=== PATIENT | female | born 1950 | race Hispanic/Latino ===

== ENCOUNTER 2018-08-18 14:51 | Emergency (ER) | payer OTHER ==
[~2018-08-18] VITALS: Ht 157.5 cm; Wt 93.0 kg
[2018-08-18] MEDS ORDERED: IBUPROFEN 600 MG TAB PO STA (15:13)
--- NOTE | 2018-08-18 15:13 | NUR ---
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
[2018-08-18] MEDS ORDERED: ACETAMINOPHEN 325 MG TAB PO ONE (15:15)
--- NOTE | 2018-08-18 15:51 | NUR ---
MANUFACTURING QUALITY ENGINEER FOR R/O DVT
--- NOTE | 2018-08-18 16:06 | NUR ---
WEED SCIENCE RESEARCH TECHNICIAN TO ROOM
--- NOTE | 2018-08-18 16:10 | Diagnostic Imaging Report ---
Exam: AP pelvis and left hip 2 views History: Pain, fall Comparison: None. Findings: No fracture or malalignment. Joint spaces preserved. No abnormal soft tissue calcification or soft tissue defect. Impression: No acute osseous abnormality Signed by: Dr. Tima Sadler M.D. on 08/18/2018 4:07 PM
--- NOTE | 2018-08-18 16:10 | Diagnostic Imaging Report ---
Exam: Left knee 3 views History: Pain Comparison: None. Findings: No fracture or malalignment. Mild medial compartment knee degenerative arthrosis. Small joint effusion. Impression: No acute osseous abnormality Small effusion Signed by: Dr. Tima Sadler M.D. on 08/18/2018 4:06 PM
--- NOTE | 2018-08-18 16:54 | Diagnostic Imaging Report ---
EXAM: US LOW EXT VEINS LIMITED UNI DATE: 08/18/2018 12:00 AM INDICATION: Fall, calf pain COMPARISON: None FINDINGS: Left lower extremity veins from the common femoral to the popliteal level were evaluated with grayscale, color flow and spectral waveform analysis. At each level, including the common femoral, greater saphenous, superficial femoral and popliteal vein, flow is identified. Normal augmentation is seen. The veins are normally compressible at each level. IMPRESSION: No evidence for venous thrombus in the left lower extremity from the common femoral through the popliteal level. Signed by: Dr. Nick Kapadia M.D. on 08/18/2018 4:50 PM
== END 2018-08-18 18:06 | disposition home or self-care (01) ==
LOC: FSED 14:51
DX: G89.11 Acute pain due to trauma (principal); M25.552 Pain in left hip; M25.562 Pain in left knee; M79.662 Pain in left lower leg; W18.30XA Fall on same level, unspecified, initial encounter; Y92.008 Other place in unspecified non-institutional (private) residence as the place of occurrence of the external cause; I10 Essential (primary) hypertension; E11.9 Type 2 diabetes mellitus without complications; E78.5 Hyperlipidemia, unspecified
CPT/HCPCS: 93971; 99283